=== PATIENT | female | born 1965 | race Caucasian/White ===

== ENCOUNTER 2024-01-03 09:52 | Day surgery (SDC) | payer OTHER ==
[~2024-01-03] VITALS: Ht 149.9 cm; Wt 50.3 kg
[2024-01-03] MEDS ORDERED: diphenhydrAMINE 50 MG/ML VIAL ONE (10:24)
[2024-01-03] MEDS ORDERED: fentaNYL citrate 0.05 MG/ML VIAL ONE (10:25)
[2024-01-03] MEDS ORDERED: MIDAZOLAM 2 MG/2 ML VIAL ONE (10:25)
[2024-01-03] MEDS: MIDAZOLAM 2 MG/2 ML VIAL IVP ONE (10:34)
[2024-01-03] MEDS: fentaNYL citrate 0.05 MG/ML VIAL IVP ONE (10:35)
[2024-01-03] MEDS ORDERED: diphenhydrAMINE 50 MG/ML VIAL IVP ONE (11:05)
== END 2024-01-03 12:32 | disposition home or self-care (01) ==
LOC: MDS 09:52 → MMU 09:55 → MDS 12:32
PROVIDERS: ATTEND Internal Medicine Gastroenterology
DX: Z12.11 Encounter for screening for malignant neoplasm of colon (principal); K63.5 Polyp of colon; E78.5 Hyperlipidemia, unspecified; Z86.010 Personal history of colon polyps; Z79.899 Other long term (current) drug therapy; Z98.890 Other specified postprocedural states
CPT/HCPCS: 45385; J1200; J2250; J3010

== ENCOUNTER 2024-02-26 14:55 | Emergency (ER) | payer OTHER ==
[~2024-02-26] VITALS: Ht 149.9 cm; Wt 51.7 kg
[2024-02-26 15:20] VITALS: BP 118/79; PULSE 90; RESP 18; TEMP 97.3; O2SAT 100
[2024-02-26 15:35] VITALS: BP 118/79; PULSE 90; RESP 18; TEMP 97.3; O2SAT 100
--- NOTE | 2024-02-26 15:36 | NUR ---
C/O PAINFUL URINATION AND BLOOD IN URINE SINCE LAST NIGHT. CALL LIGHT WITH IN REACH; MADE AWAREO NAVEED-HLD
[2024-02-26 15:57] LABS: BILIRUBIN,URINE NEGATIVE (NEGATIVE); BLOOD, URINE 3+ (NEGATIVE); COLOR,URINE YELLOW (YELLOW); LEUKOCYTE ESTERASE ,URINE 2+ (NEGATIVE); NITRITE, URINE NEGATIVE (NEGATIVE); PROTEIN,URINE NEGATIVE (NEGATIVE); UGLUCOSE NEGATIVE (NEGATIVE); UROBILINOGEN,URINE 0.2 EU/dL (0.2 - 1)
[2024-02-26 15:59] LABS: APPEARANCE,URINE HAZY (CLEAR)
[2024-02-26 16:01] LABS: BACTERIA,URINE 2+ /HPF (None Seen); MUCUS,URINE None Seen /LPF (None Seen); RBC,URINE 11-20 (MOD) /HPF (0-5); SQUAMOUS EPITHELIAL CELL,UR 4-10 (MOD) /LPF (0-3 (FEW))
[2024-02-26] MEDS ORDERED: CEPH250C16 PO (16:05)
[2024-02-26] MEDS ORDERED: PYR100 PO (16:05)
--- NOTE | 2024-02-26 16:26 | NUR ---
Patient discharged with v/s stable. Written and verbal after care instructions given and explained. Patient alert, oriented and verbalized understanding of instructions. Ambulatory with steady gait. All questions addressed prior to discharge. ID band removed. Patient advised to follow up with PMD. Rx SENT TO PHARMACY. Patient educated on indication of medication including possible reaction and side effects. Opportunity to ask questions provided and answered.
== END 2024-02-26 16:26 | disposition home or self-care (01) ==
LOC: MED 14:55
DX: N30.01 Acute cystitis with hematuria (principal); E78.5 Hyperlipidemia, unspecified; Z79.899 Other long term (current) drug therapy
CPT/HCPCS: 81001; 87086; 87186; 99283